=== PATIENT | male | born 1945 | race Two or more races ===

== ENCOUNTER 2017-05-04 08:35 | Outpatient (CLI) | payer OTHER ==
[~2017-05-04 08:35] MED LIST: AFRIN SPRAY15 ML NS; AVODART0.5 MG; AYR SALINE NA14.1 GM NS; CRESTOR10 MG; DIOVAN HCT 160-1 TAB; IBUPROFEN800 MG PO
== END 2017-05-04 08:44 | disposition home or self-care (01) ==
LOC: MRI 08:35
DX: N40.0 Benign prostatic hyperplasia without lower urinary tract symptoms (principal)
CPT/HCPCS: 72195

== ENCOUNTER 2017-11-21 11:33 | Outpatient (CLI) | payer OTHER | END 2017-11-21 11:47 | disposition home or self-care (01) | LOC: RAD 11:33 | DX: J45.909 Unspecified asthma, uncomplicated (principal); J32.8 Other chronic sinusitis ==

== ENCOUNTER → 2018-02-25 16:12 | Outpatient (CLI) | payer OTHER | END | disposition home or self-care (01) | LOC: LAB 16:12 | DX: T78.49XA Other allergy, initial encounter (principal) ==

== ENCOUNTER → 2018-04-15 | Outpatient (CLI) | payer OTHER | END | disposition home or self-care (01) | LOC: NUCLEAR 10:00 | DX: I20.1 Angina pectoris with documented spasm (principal) ==

== ENCOUNTER → 2018-07-01 | Outpatient (CLI) | payer OTHER | END | disposition home or self-care (01) | LOC: NUCLEAR 07:00 | DX: I25.10 Atherosclerotic heart disease of native coronary artery without angina pectoris (principal); I25.84 Coronary atherosclerosis due to calcified coronary lesion | CPT/HCPCS: 78452; 93017; A9500 ==

== ENCOUNTER 2019-03-17 16:47 | Emergency (ER) | payer OTHER ==
[~2019-03-17] VITALS: Ht 170.2 cm; Wt 87.5 kg
[2019-03-17] MEDS ORDERED: SYNTHROID100 MCG (17:08)
[2019-03-17] MEDS ORDERED: VALSARTAN80 MG (17:08)
[2019-03-17] MEDS ORDERED: CRESTOR10 MG (17:08)
[2019-03-17] MEDS ORDERED: ASPIR 8181 MG (17:09)
== END 2019-03-17 21:12 | disposition home or self-care (01) ==
LOC: ER 16:47
DX: J00 Acute nasopharyngitis [common cold] (principal)

== ENCOUNTER 2020-05-25 14:24 | Outpatient (CLI) | payer OTHER ==
[~2020-05-25 14:24] MED LIST changes: +ASPIR 8181 MG; +SYNTHROID100 MCG; +VALSARTAN80 MG
== END 2020-05-25 14:30 | disposition home or self-care (01) ==
LOC: MRI 14:24
DX: M54.5 Low back pain (principal)
CPT/HCPCS: 72148

== ENCOUNTER 2020-06-18 08:19 | Emergency (ER) | payer OTHER ==
[~2020-06-18] VITALS: Ht 170.2 cm; Wt 83.0 kg
== END 2020-06-18 12:32 | disposition home or self-care (01) ==
LOC: ER 08:19
DX: R53.1 Weakness (principal); R42 Dizziness and giddiness; Z20.822 Contact with and (suspected) exposure to COVID-19

== ENCOUNTER 2020-06-19 09:37 | Outpatient (CLI) | payer OTHER | END 2020-06-19 09:50 | disposition home or self-care (01) | LOC: MRI 09:37 | PROVIDERS: ATTEND General Practice | DX: R53.1 Weakness (principal); R42 Dizziness and giddiness; M89.8X8 Other specified disorders of bone, other site | CPT/HCPCS: 70553; A9575; 70551 ==

== ENCOUNTER 2022-07-07 10:35 | Outpatient (CLI) | payer OTHER | END 2022-07-07 10:50 | disposition home or self-care (01) | LOC: SONOGRAMA 10:35 | DX: N40.1 Benign prostatic hyperplasia with lower urinary tract symptoms (principal); R97.20 Elevated prostate specific antigen [PSA] ==

== ENCOUNTER 2023-01-19 06:18 | Emergency (ER) | payer OTHER ==
[~2023-01-19] VITALS: Ht 170.2 cm; Wt 82.6 kg
[2023-01-19] MEDS ORDERED: PLAVIX75 MG (07:00)
[2023-01-19 08:28] LABS: HEMATOCRIT 37.2 % (39.0-48.0); HEMOGLOBIN 12.6 g/dL (13-16.00); MEAN CELL VOLUME 85.2 fL (80.0-100.00); MEAN CORPUSCULAR HEMOGLOBIN 28.8 pg (27.00-32.0); MEAN CORPUSCULAR HGB CONC 33.8 g/dl (32.0-36.0); PLATELET COUNT 303 K/uL (150-450); RED BLOOD COUNT 4.37 M/uL (4.00-6.00); RED CELL DISTRIBUTION WIDTH 15.1 % (11.5-14.5)
[2023-01-19 08:49] LABS: INR 1.09; PARTIAL THROMBOPLASTIN TIME 22.2 SECONDS (22.0-34.0); PROTHROMBIN TIME 11.4 SECONDS (9.0-11.5)
[2023-01-19 08:57] LABS: ALBUMIN 3.1 gm/dL (3.4-5.0); BILIRUBIN TOTAL 0.62 mg/dL (0.3-1.2); CALCIUM 8.9 mg/dL (8.5-10.1); CREATININE SERUM 0.82 mg/dL (0.70-1.30); GFR 91.59; POTASSIUM 4.15 mEq/L (3.5-5.1); TOTAL PROTEIN 6.1 gm/dL (6.4-8.2)
[2023-01-19 09:48] LABS: URINE APPEARANCE Clear; URINE BILIRRUBIN Negative (NEGATIVE); URINE BLOOD Negative; URINE COLOR Dark Yellow; URINE GLUCOSE Negative (NEGATIVE); URINE LEUKOCYTE Negative; URINE NITRATE Negative; URINE PROTEIN Negative (NEGATIVE); URINE UROBILINOGEN 0.2 E.U./dl
[2023-01-19 09:49] LABS: URINE RBC 3.8 uL (0.0-20.8)
[2023-01-19 10:23] LABS: URINE WBC 1.2 uL (0.0-23.2)
[2023-01-19] MEDS ORDERED: XYZAL5 MG PO (10:29)
== END 2023-01-19 10:52 | disposition home or self-care (01) ==
LOC: ER 06:18
PROVIDERS: General Practice
DX: R04.0 Epistaxis (principal); R42 Dizziness and giddiness; E03.9 Hypothyroidism, unspecified; Z86.79 Personal history of other diseases of the circulatory system; Z87.09 Personal history of other diseases of the respiratory system
CPT/HCPCS: 36415; 93005; 96372; 99284; J3490